=== PATIENT | female | born 1990 | race Caucasian/White ===

== ENCOUNTER → 2016-07-04 | Outpatient (CLI) | payer MEDICAID ==
[~2016-07-04] MED LIST: ALLE10TA PO; ANTA250T PO; AZIT500T2 PO; BREAST PUMP1 MI1; BUTA1CAP PO; BUTO1CRE PV; EPIN1INJ17 IM; EPIN1INJ24 IM; IBUP-232 PO; LEVOTAB PO; NALT1TAB3 PO; NORC5TAB PO; ONDA4TAB7 SL; PREN1CAP PO; PROM12.54 PO; PROM25TA5 PO; RANI150T PO; SENN1TAB PO; SERT-132 PO; TERC0.8C VAGINAL; VITA20004 PO; ZOFR4TAB PO; ZOLO25TA PO
== END ==
LOC: HPND 09:43
PROVIDERS: ATTEND Obstetrics & Gynecology Obstetrics
DX: O35.1XX0 Maternal care for (suspected) chromosomal abnormality in fetus, not applicable or unspecified (principal)
CPT/HCPCS: 76816

== ENCOUNTER → 2016-07-22 | Outpatient (CLI) | payer MEDICAID ==
[~2016-07-22] MED LIST changes: -TERC0.8C VAGINAL
== END ==
LOC: HPND 09:53
PROVIDERS: ATTEND Obstetrics & Gynecology
DX: O35.1XX0 Maternal care for (suspected) chromosomal abnormality in fetus, not applicable or unspecified (principal); O36.5930 Maternal care for other known or suspected poor fetal growth, third trimester, not applicable or unspecified
CPT/HCPCS: 76816

== ENCOUNTER 2016-07-30 23:02 | Inpatient (IN) | payer MEDICAID ==
[~2016-07-30] VITALS: Ht 170.2 cm; Wt 78.5 kg
[~2016-07-30 23:02] MED LIST changes: -ALLE10TA PO; -ANTA250T PO; -AZIT500T2 PO; -BREAST PUMP1 MI1; -BUTA1CAP PO; -BUTO1CRE PV; -EPIN1INJ17 IM; -EPIN1INJ24 IM; -IBUP-232 PO; -LEVOTAB PO; -NALT1TAB3 PO; -NORC5TAB PO; -ONDA4TAB7 SL; -PROM12.54 PO; -SENN1TAB PO; -SERT-132 PO; -VITA20004 PO; -ZOFR4TAB PO; -ZOLO25TA PO
[2016-07-30] MEDS ORDERED: LACTATED RINGER'S 1000 ML INJ 1,000 ML IV PRN (23:32)
[2016-07-30] MEDS: LACTATED RINGER'S 1000 ML INJ 1,000 ML IV SCH (23:32)
--- NOTE | 2016-07-30 23:32 | HHI.HP ---
HPI Travel History International Travel<30 Days: No Contact w/Intl Traveler<30Days: No Known Affected Area: No History of Present Illness HPI This patient is a 25-year-old 1 para 0 EDC is August 02, 2016 presently at 39 weeks and 4 days she presents with a chief complaint of spontaneous rupture of membranes at around 9 PM ruptured now for 2-1/2 hours Onset of irregular contractions just feeling crampy care with care for women course is significant for the baby with bilateral clubfeet and bilateral pyelectasis Group B strep is negative blood type is O+ one-hour GTT is 101 Baseline blood pressure 112/60 History Past Medical History Narrative Medical Patient is allergic to clindamycin Peanuts and penicillin Patient has a history of anxiety History of self cutting as a teenager Obstetric History Obstetric History First Past Surgical History Surgical History: No Previous Surgery Family History Family History: Negative Social History Alcohol Use: No Tobacco Use: No Substance Abuse: No Allergies-Medications (Allergen,Severity, Reaction): Coded Allergies: Clindamycin (Verified Allergy, Severe, swelling burnuing, 07/18/16) PEANUTS (Verified Allergy, Severe, ANAPHALACTIC SHOCK, 07/18/16) Penicillin (Verified Allergy, Unknown, DOESN'T REMEMBER MAKES SICK, 07/18) Home Meds Active Scripts Ranitidine 150 Mg Dll549 Mg PO BID #60 TAB Ref 4 Prov:Estrella Rendon 07/18/16 Promethazine (Phenergan)25 Mg Tab25 Mg PO ONCE #20 TAB Ref 1 Prov:Estrella Rendon 06/22/16 Reported Medications Vit W/ Fe Polysacch C (Vitafol Ultra 29-0.6-0.4-200 mg)1 Cap Cap Po 04/27/16 Discontinued Scripts Butoconazole Nitrate (One Dose (Gynazole-1)2 % Cre1 Appl PV HS #1 APPLIC Ref 0 Prov:Estrella Rendon 07/21/16 Review of Systems General / Constitutional: No: Fever, Weight Gain, Weight Loss, Chills, Other Eyes: No: Diploplia, Blurred Vision, Visual changes, Pain, Photophobia, Other HENT: No: Headaches, Vertigo, Dental Difficulties, Lightheadedness, Other Cardiovascular: No: Irregular Rhythm, Chest Pain or Discomfort, Palpitations, Tachycardia, Syncope, Varicosities, Edema, Cyanosis, Other Respiratory: No: Cough, Short of Breath, Wheezing, Other Gastrointestinal: Abdominal Pain, Other (rupture of membranes) Genitourinary: No: Urgency, Frequency, Dysuria, Nocturia, Hematuria, Decreased Urinary Output, Oliguria, Hesitancy, Dribbling, Incontinence, Pelvic Pain, Dyspareunia, Discharge, Menorrhagia, Vaginal Bleeding, Other Musculoskeletal: No: Limited ROM, Weakness, Cramping, Edema, Pain, Other Physical Exam Narrative GENERAL: Well-nourished, well-developed patient. Alert oriented 3 and cooperative in no acute distress SKIN: Warm and dry. HEAD: Normocephalic and atraumatic. EYES: No scleral icterus. No injection or drainage. Conjunctiva are pink ENT: No nasal drainage noted. Mucous membranes pink. Airway patent. NECK: Supple, trachea midline. No JVD. CARDIOVASCULAR: Regular rate and rhythm without murmurs, gallops, or rubs. RESPIRATORY: Breath sounds equal bilaterally. No accessory muscle use. ABDOMEN/GI: Gravid estimated weight of 7 pounds Gravid to [-] weeks size term Fundal Height: [-] GENITOURINARY: External Genitalia: intact and normal in appearance BUS glands: [-] Cervix: [-] Slightly posterior Dilatation: [-] Closed Effacement: [-] 80% effaced Station: [-] -2 station Presentation: [-] Vertex Membranes: [ ruptured]amnisure is positive Uterine Contractions: [-] Every 7 minutes FHT's: Category: [-] 1 Baseline: [-] 140 Reactive: [-] + Variability: [-] Moderate [id number] variability Decels: [-] 0 EXTREMITIES: No cyanosis or edema. 2+ reflexes nonbrisk NEUROLOGICAL: Awake and alert. Motor and sensory grossly within normal limits. Five out of 5 muscle strength in all muscle groups. Normal speech. 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
[2016-07-30] MEDS ORDERED: LIDOCAINE HCL 1% 50 ML VIAL I-DERMAL PRN (23:45)
[2016-07-30] MEDS ORDERED: ONDANSETRON HCL 4 MG/2 ML VIAL IV PRN (23:45)
[2016-07-30] MEDS ORDERED: CITRIC ACID-SODIUM CITRATE LIQ 30 ML UDC PO SCH (23:45)
[2016-07-30] MEDS ORDERED: SODIUM CHLORID 0.9% 500 ML INJ 500 ML IV PRN (23:45)
[2016-07-30] MEDS ORDERED: LIDOCAINE HCL 1% 50 ML VIAL INFIL PRN (23:45)
[2016-07-30] MEDS ORDERED: OXYTOCIN 30 UNITS-500ML PREMIX 500 ML IV ONE (23:45)
[2016-07-30] MEDS ORDERED: MINERAL OIL 10 ML VIAL TOPICAL PRN (23:45)
[2016-07-30] MEDS ORDERED: SODIUM CHLOR 0.9% 1000 ML INJ 1,000 ML IV PRN (23:52)
[2016-07-30 23:54] VITALS: BP 129/73; PULSE 85; RESP 18
[2016-07-30 23:55] LABS: AUTOMATED NEUTROPHIL # 8.8 TH/MM3 (1.8-7.7); BASOPHIL # 0.1 TH/MM3 (0-0.2); BASOPHIL % 0.7 % (0.0-2.0); EOSINOPHIL % 0.3 % (0.0-4.0); HEMATOCRIT 34.4 % (35.0-46.0); HEMO FLAGS DIFF FINAL; LYMPH % 22.1 % (9.0-44.0); LYMPHOCYTE # 2.9 TH/MM3 (1.0-4.8); MEAN CELL VOLUME 90.9 FL (80.0-100.0); MEAN CORPUSCULAR HEMOGLOBIN 31.6 PG (27.0-34.0); MEAN CORPUSCULAR HGB CONC 34.8 % (32.0-36.0); MONO % 8.4 % (0.0-8.0); NEUT % 68.5 % (16.0-70.0); PLATELET COUNT 243 TH/MM3 (150-450); RED BLOOD COUNT 3.78 MIL/MM3 (4.00-5.30); RED CELL DISTRIBUTION WIDTH 12.5 % (11.6-17.2); WHITE BLOOD COUNT 12.9 TH/MM3 (4.0-11.0)
[2016-07-31] VITALS (69 sets, daily range): BP systolic 80–136; BP diastolic 57–90; PULSE 54–93; RESP 16–20; TEMP 97.8–98.3
[2016-07-31 00:23] LABS: AMPHETAMINE, URINE NEG (NEG); BARBITURATES, URINE NEG (NEG); COCAINE, URINE NEG (NEG)
[2016-07-31 00:42] LABS: ALT (GPT) 13 U/L (10-53); ANION GAP 11 MEQ/L (5-15); AST (GOT) 17 U/L (15-37); BICARBONATE 19.9 MEQ/L (21.0-32.0); BLOOD UREA NITROGEN 8 MG/DL (7-18); CHLORIDE 109 MEQ/L (98-107); GLOMERULAR FILTRATION RATE 135 ML/MIN (>89); POTASSIUM 3.7 MEQ/L (3.5-5.1); SODIUM (NA) 140 MEQ/L (136-145); URIC ACID 4.8 MG/DL (2.6-6.0)
[2016-07-31 00:44] LABS: ALKALINE PHOSPHATASE 161 U/L (45-117); TOTAL BILIRUBIN ADULT 0.2 MG/DL (0.2-1.0)
[2016-07-31 01:15] LABS: BLOOD, URINE NEG (NEG); COMMENT (UR) CULT NOT INDICATED; CULTURE IF INDICATED CULT NOT INDICATED; GLUCOSE,URINE NEG (NEG); KETONE, URINE NEG (NEG); MUCUS URINE FEW /lpf (OCC); NITRITE,URINE NEG (NEG); SQUAMOUS EPITHELIAL CELL URINE 1 /hpf (0-5); URINE COLOR LIGHT-YELLOW (YELLW/STRAW)
[2016-07-31] MEDS ORDERED: OXYTOCIN 30 UNITS-500ML PREMIX 500 ML IV SCH (06:00)
--- NOTE | 2016-07-31 06:09 | PD.LABORPN ---
Subjective Subjective Patient states she is still feeling contractions however they're not recording well on the monitor Objective Vital Signs Vital Signs Date Time Temp Pulse Resp B/P Pulse Ox O2 Delivery O2 Flow Rate FiO2 07/31/16 04:45 16 07/31/16 04:06 18 07/31/16 03:45 18 07/31/16 02:44 58 126/70 07/31/16 02:43 97.8 18 07/31/16 02:00 18 07/31/16 01:30 18 07/31/16 01:00 18 07/31/16 00:29 18 07/30/16 23:54 85 129/73 07/30/16 23:54 18 07/30/16 23:54 85 129/73 Objective Pelvic Exam: Cervix: [-] Posterior Dilatation: [-] Fingertip Effacement: [-] 90% Station: [-] -1 station Presentation: [-] Vertex Membranes: ruptured] Uterine Contractions: [-] Irregular FHT's: Category: [-] 1 Baseline: [-]140 Reactive: [-] + Variability: [-] Moderate Decels: [-] 0 Assessment/Plan Assessment and Plan Assessment; premature rupture of membranes Slightly more effaced however no progress Plan; Pitocin augmentation Zofran for nausea IV medication if patient desires something for pain Anjana Lynn MD Jul 31, 2016 06:09
[2016-07-31] MEDS: LACTATED RINGER'S 1000 ML INJ 1,000 ML IV SCH ×2 (06:28→13:59)
[2016-07-31] MEDS: MORPHINE SULFATE 4 MG/ML INJ IV PRN ×2 (12:56→22:00)
[2016-07-31] MEDS ORDERED: fentaNYL 2MCG-BUPIV 0.125% INJ 100 ML ONE (14:36)
[2016-07-31] MEDS ORDERED: ePHEDrine/NS 25 MG/5 ML SYR ONE (14:37)
--- NOTE | 2016-07-31 14:52 | PD.LABORPN ---
Subjective Subjective Patient reports increasing pain with contractions; denies other complaints. Objective Vital Signs Vital Signs Date Time Temp Pulse Resp B/P Pulse Ox O2 Delivery O2 Flow Rate FiO2 07/31/16 14:01 75 129/88 07/31/16 13:31 61 126/69 07/31/16 13:00 97.8 07/31/16 13:00 75 126/73 07/31/16 12:00 74 136/73 07/31/16 12:00 97.8 07/31/16 11:30 69 116/73 07/31/16 10:31 61 110/65 07/31/16 10:00 98.0 07/31/16 10:00 70 130/87 07/31/16 09:30 59 124/78 07/31/16 09:00 75 123/78 07/31/16 08:00 97.8 07/31/16 08:00 66 121/78 07/31/16 08:00 20 07/31/16 07:55 69 126/82 07/31/16 07:09 77 112/68 Objective Pelvic Exam (Per Nursing staff): Cervix: Dilatation: 4cm Effacement: 90% Station: -1 Presentation: V Membranes: Ruptured (2100 07/30) Uterine Contractions: q3 min FHT's: Category: 1 Baseline: 120 Reactive: Y Variability: Mod Decels: Absent Assessment/Plan Problem List: (1) Labor and delivery indication for care or intervention (2) Assessment and Plan 25 yo G1 at 39 5/7 weeks -Category 1 rhythm -Making cervical change on Pitocin 30: Dilation 1cm -> 4cm over last ~1-2 hrs -IUPC placed -Patient with increased pain with contractions; epidural will be placed since dilation of 4cm Manuel Gonsalez MD R2 Jul 31, 2016 14:52
[2016-07-31] MEDS ORDERED: fentaNYL 2MCG-BUPIV 0.125% INJ 100 ML EPIDURAL SCH (16:00)
[2016-07-31] MEDS ORDERED: MEASLES, MUMPS, RUBELLA VACCINE 0.5 ML VIAL SQ ONE (16:00)
[2016-07-31] MEDS ORDERED: NO SYSTEM NARCOTICS XX PRN (16:00)
[2016-07-31] MEDS ORDERED: DO NOT ADMINISTER ANTICOAGULANTS XX PRN (16:00)
[2016-07-31] MEDS ORDERED: ePHEDrine/NS 50 MG/5 ML SYR IV PRN (16:00)
[2016-07-31] MEDS ORDERED: DIPHTH/TETANUS/ACEL PERTUSSIS (BOOSTER) 0.5 ML VIAL/PFS IM ONE (16:00)
--- NOTE | 2016-07-31 19:35 | PD.OB.DELI ---
Anesthesia: Epidural Episiotomy: None Vaginal Delivery: Normal Presentation: Occiput anterior Nuchal Cord: None Delayed cord clamping (45 sec): Yes Infant: Male One Minute : 8 Five Minute : 9 Weight: 2920 Care: Suctioned, Responded to stimulation Placenta: Spontaneous delivery, Intact, 3 vessel cord Laceration: 1 deg Repair: Chromic interrupted Additional Information 25 year old now delivered at 39 weeks gestation via uncomplicated spontaneous vaginal delivery. Placenta was delivered spontaneously, intact with 3-vessel cord. Apgars were 8/9. weight 2920g. Mother had a first degree vaginal laceration repaired with 2.0 chromic sutures. Pipe Nixon MD R1 Jul 31, 2016 19:35
--- NOTE | 2016-07-31 19:40 | PD.LABORPN ---
Subjective Subjective The OB attending supervising note This patient is a at 39 weeks who was delivered spontaneously over a first -degree perineal laceration, bulb suctioned on the perineum baby then delivered without difficulty by family service worker, baby is a male weight 2920 g, 8/ 9 Apgars. There were no complications to delivery, cord blood obtained placenta delivered spontaneously intact. First-degree perineal lacerations were oversewn with 2 [id number] sutures of 2-0 chromic, hemostasis achieved , blood loss 100 cc, mother and baby doing well liver supervised by myself family medicine performing the procedure well Objective Vital Signs Vital Signs Date Time Temp Pulse Resp B/P Pulse Ox O2 Delivery O2 Flow Rate FiO2 07/31/16 18:16 67 126/69 07/31/16 18:00 74 117/90 07/31/16 17:45 65 124/82 07/31/16 17:31 66 118/64 07/31/16 17:15 62 122/69 07/31/16 17:01 64 116/64 07/31/16 17:00 17 07/31/16 17:00 98.3 07/31/16 16:46 74 126/64 07/31/16 16:31 74 129/75 07/31/16 16:15 64 119/66 07/31/16 16:12 72 106/75 07/31/16 16:11 86 80/58 07/31/16 16:06 69 125/76 07/31/16 16:05 73 07/31/16 16:01 69 114/61 07/31/16 16:00 70 07/31/16 15:56 73 115/58 07/31/16 15:55 59 07/31/16 15:50 75 119/70 07/31/16 15:46 58 120/57 07/31/16 15:45 68 07/31/16 15:40 75 113/68 07/31/16 15:36 78 115/60 07/31/16 15:35 73 07/31/16 15:31 83 120/75 07/31/16 15:30 78 07/31/16 15:25 63 07/31/16 15:25 122/63 07/31/16 15:21 76 127/68 07/31/16 15:20 74 07/31/16 15:17 93 116/84 07/31/16 15:15 85 07/31/16 15:10 76 07/31/16 15:05 78 07/31/16 15:00 87 07/31/16 14:55 64 07/31/16 14:50 54 07/31/16 14:45 62 07/31/16 14:30 70 135/79 07/31/16 14:01 75 129/88 07/31/16 14:00 98.2 07/31/16 13:31 61 126/69 07/31/16 13:00 97.8 07/31/16 13:00 75 126/73 07/31/16 12:00 74 136/73 07/31/16 12:00 97.8 Objective Assessment/Plan Problem List: (1) Labor and delivery indication for care or intervention (2) Rik Arciniega II, MD Jul 31, 2016 19:40
[2016-07-31] MEDS ORDERED: ACETAMINOPHEN 325 MG TAB PO PRN (19:45)
[2016-07-31] MEDS ORDERED: ALUMINUM/MAGNESIUM/SIMETH 30 ML CUP PO PRN (19:45)
[2016-07-31] MEDS ORDERED: SODIUM CHLORIDE 0.9% FLUSH 5 ML FLUSH IV PRN (19:45)
[2016-07-31] MEDS ORDERED: BENZOCAINE 20% TOPICAL SPRAY 60 ML CAN TOPICAL PRN (19:45)
[2016-07-31] MEDS ORDERED: ZOLPIDEM TARTRATE 5 MG TAB PO PRN (19:45)
[2016-07-31] MEDS: IBUPROFEN 600 MG TAB PO PRN (20:30)
[2016-07-31] MEDS ORDERED: SODIUM CHLORIDE 0.9% FLUSH 5 ML FLUSH IV SCH (21:00)
[2016-07-31] MEDS: WITCH HAZEL 50%/GLYCERIN 12.5% 40 PAD JAR TOPICAL PRN (22:33)
[2016-07-31] MEDS: ONDANSETRON ODT 4 MG TAB PO PRN (23:43)
[2016-08-01] MEDS: IBUPROFEN 600 MG TAB PO PRN ×4 (02:26→21:37)
[2016-08-01] MEDS ORDERED: oxyCODONE/ACETAMINOPHEN 5 MG/325 MG TAB PO PRN ×2 (07:30)
--- NOTE | 2016-08-01 07:31 | HHI.OB ---
Subjective Post Day: 1 Remarks Patient is doing well this morning. Complaining of abdominal cramps. No vaginal bleeding improved from yesterday and less than a normal menstrual cycle. She is an bleeding and voiding without difficulty. Attempting to breast -feed. She is following with care for women. No chest pain or shortness of breath. Objective Vitals/I&O Vital Signs Date Time Temp Pulse Resp B/P Pulse Ox O2 Delivery O2 Flow Rate FiO2 07/31/16 19:50 18 07/31/16 19:45 83 123/80 07/31/16 19:45 83 123/80 07/31/16 19:31 77 124/76 07/31/16 19:20 18 07/31/16 19:16 80 133/65 07/31/16 18:30 71 128/69 07/31/16 18:16 67 126/69 07/31/16 18:00 74 117/90 07/31/16 17:45 65 124/82 07/31/16 17:31 66 118/64 07/31/16 17:15 62 122/69 07/31/16 17:01 64 116/64 07/31/16 17:00 17 07/31/16 17:00 98.3 07/31/16 16:46 74 126/64 07/31/16 16:31 74 129/75 07/31/16 16:15 64 119/66 07/31/16 16:12 72 106/75 07/31/16 16:11 86 80/58 07/31/16 16:06 69 125/76 07/31/16 16:05 73 07/31/16 16:01 69 114/61 07/31/16 16:00 70 07/31/16 15:56 73 115/58 07/31/16 15:55 59 07/31/16 15:50 75 119/70 07/31/16 15:46 58 120/57 07/31/16 15:45 68 07/31/16 15:40 75 113/68 07/31/16 15:36 78 115/60 07/31/16 15:35 73 07/31/16 15:31 83 120/75 07/31/16 15:30 78 07/31/16 15:25 63 07/31/16 15:25 122/63 07/31/16 15:21 76 127/68 07/31/16 15:20 74 07/31/16 15:17 93 116/84 07/31/16 15:15 85 07/31/16 15:10 76 07/31/16 15:05 78 07/31/16 15:00 87 07/31/16 14:55 64 07/31/16 14:50 54 07/31/16 14:45 62 07/31/16 14:30 70 135/79 07/31/16 14:01 75 129/88 07/31/16 14:00 98.2 07/31/16 13:31 61 126/69 07/31/16 13:00 97.8 07/31/16 13:00 75 126/73 07/31/16 12:00 74 136/73 07/31/16 12:00 97.8 07/31/16 11:30 69 116/73 07/31/16 10:31 61 110/65 07/31/16 10:00 98.0 07/31/16 10:00 70 130/87 07/31/16 09:30 59 124/78 07/31/16 09:00 75 123/78 07/31/16 08:00 97.8 07/31/16 08:00 66 121/78 07/31/16 08:00 20 07/31/16 07:55 69 126/82 Objective Remarks GENERAL: Well-nourished, well-developed patient. CARDIOVASCULAR: Regular rate and rhythm without murmurs, gallops, or rubs. RESPIRATORY: Breath sounds equal bilaterally. No accessory muscle use. ABDOMEN/GI: Abdomen soft, non-tender. Fundus: Firm, non-tender at umbilicus. GENITOURINARY: Light to moderate bleeding. EXTREMITIES: No cyanosis or edema, non-tender, without signs of DVT. Medications and IVs Current Medications Medications (Trade) Dose Ordered Sig/Aj Route Start Time Stop Time Status Last Admin (Pitocin 30 Units-NS 500 ml Premix) 500 ml @ 0 mls/hr TITRATE IV 07/31/16 06:00 07/31/16 06:27 Miscellaneous Information No systemic narcotics to be given except... UNSCH PRN XX 07/31/16 16:00 08/01/16 15:59 Miscellaneous Information DO NOT ADMINISTER ANY ANTICOAGUL... UNSCH PRN XX 07/31/16 16:00 08/01/16 15:59 (fentaNYL 2MCG-BUPIV 0.125% INJ) 100 ml @ 0 mls/hr TITRATE EPIDURAL 07/31/16 16:00 (ePHEDrine/NS 50 MG/5 ML SYR) 10 mg UNSCH PRN IV 07/31/16 16:00 08/01/16 15:59 (NS Flush) 2 ml BID IV 07/31/16 21:00 (NS Flush) 2 ml UNSCH PRN IV 07/31/16 19:45 (Tylenol) 650 mg Q4H PRN PO 07/31/16 19:45 (Motrin) 600 mg Q6H PRN PO 07/31/16 19:45 08/01/16 02:26 (Americaine 20% Top Spr) 1 spray Q4H PRN TOPICAL 07/31/16 19:45 07/31/16 22:33 (Tucks Pads) 1 applic QID PRN TOPICAL 07/31/16 19:45 07/31/16 22:33 (Ashley-Colace) 2 tab Q12H PRN PO 07/31/16 19:45 (Ambien) 5 mg HS PRN PO 07/31/16 19:45 (Mag-Al Plus Susp Liq) 15 ml Q8H PRN PO 07/31/16 19:45 (Zofran Odt) 4 mg Q6H PRN PO 07/31/16 19:45 07/31/16 23:43 (Percocet 5-325 Mg) 1 tab Q4H PRN PO 08/01/16 07:30 (Percocet 5-325 Mg) 2 tab Q4H PRN PO 08/01/16 07:30 Assessment/Plan Problem List: (1) Vaginal delivery Assessment and Plan 25 year old PPD1 1. Care - AFVSS since delivery - Motrin and Percocet prn pain - Encouraged OOB, as tolerated - Pelvic rest x 6 weeks - Will f/u with care for women in 4-6 weeks - Anticipate d/c tomorrow Discussed with Dr. Arciniega Discharge Planning Likely tomorrow Bobby Ramírez MD R2 Aug 01, 2016 07:31
--- NOTE | 2016-08-01 08:09 | HHI.OB ---
Subjective Post Day: 1 Remarks Patient's day 1 and doing well no complaints or problems bleeding is decreased uterus is firm and she is tolerating her diet and ambulating well, she is seen with the family medicine residents and agree with their evaluation and plan Objective Vitals/I&O Vital Signs Date Time Temp Pulse Resp B/P Pulse Ox O2 Delivery O2 Flow Rate FiO2 07/31/16 19:50 18 07/31/16 19:45 83 123/80 07/31/16 19:45 83 123/80 07/31/16 19:31 77 124/76 07/31/16 19:20 18 07/31/16 19:16 80 133/65 07/31/16 18:30 71 128/69 07/31/16 18:16 67 126/69 07/31/16 18:00 74 117/90 07/31/16 17:45 65 124/82 07/31/16 17:31 66 118/64 07/31/16 17:15 62 122/69 07/31/16 17:01 64 116/64 07/31/16 17:00 17 07/31/16 17:00 98.3 07/31/16 16:46 74 126/64 07/31/16 16:31 74 129/75 07/31/16 16:15 64 119/66 07/31/16 16:12 72 106/75 07/31/16 16:11 86 80/58 07/31/16 16:06 69 125/76 07/31/16 16:05 73 07/31/16 16:01 69 114/61 07/31/16 16:00 70 07/31/16 15:56 73 115/58 07/31/16 15:55 59 07/31/16 15:50 75 119/70 07/31/16 15:46 58 120/57 07/31/16 15:45 68 07/31/16 15:40 75 113/68 07/31/16 15:36 78 115/60 07/31/16 15:35 73 07/31/16 15:31 83 120/75 07/31/16 15:30 78 07/31/16 15:25 63 07/31/16 15:25 122/63 07/31/16 15:21 76 127/68 07/31/16 15:20 74 07/31/16 15:17 93 116/84 07/31/16 15:15 85 07/31/16 15:10 76 07/31/16 15:05 78 07/31/16 15:00 87 07/31/16 14:55 64 07/31/16 14:50 54 07/31/16 14:45 62 07/31/16 14:30 70 135/79 07/31/16 14:01 75 129/88 07/31/16 14:00 98.2 07/31/16 13:31 61 126/69 07/31/16 13:00 97.8 07/31/16 13:00 75 126/73 07/31/16 12:00 74 136/73 07/31/16 12:00 97.8 07/31/16 11:30 69 116/73 07/31/16 10:31 61 110/65 07/31/16 10:00 98.0 07/31/16 10:00 70 130/87 07/31/16 09:30 59 124/78 07/31/16 09:00 75 123/78 Objective Remarks GENERAL: Well-nourished, well-developed patient. CARDIOVASCULAR: Regular rate and rhythm without murmurs, gallops, or rubs. RESPIRATORY: Breath sounds equal bilaterally. No accessory muscle use. ABDOMEN/GI: Abdomen soft, non-tender. Fundus: Firm, non-tender at umbilicus. GENITOURINARY: Light to moderate bleeding. EXTREMITIES: No cyanosis or edema, non-tender, without signs of DVT. Medications and IVs Current Medications Medications (Trade) Dose Ordered Sig/Aj Route Start Time Stop Time Status Last Admin (Pitocin 30 Units-NS 500 ml Premix) 500 ml @ 0 mls/hr TITRATE IV 07/31/16 06:00 07/31/16 06:27 Miscellaneous Information No systemic narcotics to be given except... UNSCH PRN XX 07/31/16 16:00 08/01/16 15:59 Miscellaneous Information DO NOT ADMINISTER ANY ANTICOAGUL... UNSCH PRN XX 07/31/16 16:00 08/01/16 15:59 (fentaNYL 2MCG-BUPIV 0.125% INJ) 100 ml @ 0 mls/hr TITRATE EPIDURAL 07/31/16 16:00 (ePHEDrine/NS 50 MG/5 ML SYR) 10 mg UNSCH PRN IV 07/31/16 16:00 08/01/16 15:59 (NS Flush) 2 ml BID IV 07/31/16 21:00 (NS Flush) 2 ml UNSCH PRN IV 07/31/16 19:45 (Tylenol) 650 mg Q4H PRN PO 07/31/16 19:45 (Motrin) 600 mg Q6H PRN PO 07/31/16 19:45 08/01/16 02:26 (Americaine 20% Top Spr) 1 spray Q4H PRN TOPICAL 07/31/16 19:45 07/31/16 22:33 (Tucks Pads) 1 applic QID PRN TOPICAL 07/31/16 19:45 07/31/16 22:33 (Ashley-Colace) 2 tab Q12H PRN PO 07/31/16 19:45 (Ambien) 5 mg HS PRN PO 07/31/16 19:45 (Mag-Al Plus Susp Liq) 15 ml Q8H PRN PO 07/31/16 19:45 (Zofran Odt) 4 mg Q6H PRN PO 07/31/16 19:45 07/31/16 23:43 (Percocet 5-325 Mg) 1 tab Q4H PRN PO 08/01/16 07:30 (Percocet 5-325 Mg) 2 tab Q4H PRN PO 08/01/16 07:30 Assessment/Plan Problem List: (1) Vaginal delivery Assessment and Plan 25 year old PPD1 1. Care - AFVSS since delivery - Motrin and Percocet prn pain - Encouraged OOB, as tolerated - Pelvic rest x 6 weeks - Will f/u with care for women in 4-6 weeks - Anticipate d/c tomorrow Discussed with Dr. Arciniega Discharge Planning Likely tomorrow Rik Arciniega II, MD Aug 01, 2016 08:09
[2016-08-01] MEDS: DOCUSATE SODIUM 50 MG/SENNA 8.6 MG TAB PO PRN (15:59)
[2016-08-01] MEDS: ONDANSETRON ODT 4 MG TAB PO PRN (17:52)
[2016-08-01] MEDS: ACETAMINOPHEN/HYDROcodone 325 MG/5 MG TAB PO PRN (21:37)
[2016-08-02] MEDS: ACETAMINOPHEN/HYDROcodone 325 MG/5 MG TAB PO PRN ×4 (02:39→18:08)
[2016-08-02] MEDS: DOCUSATE SODIUM 50 MG/SENNA 8.6 MG TAB PO PRN (04:35)
[2016-08-02] MEDS: IBUPROFEN 600 MG TAB PO PRN ×3 (04:35→18:08)
--- NOTE | 2016-08-02 08:09 | HHI.OB ---
Subjective Post Day: 2 Remarks Patient is doing well this morning. Pain is controlled with medications. She is a bleeding and voiding without difficulty. Vaginal bleeding has decreased from yesterday. No fever, chills, shortness of breath, chest pain. She is breast-feeding. (Bobby Ramírez MD R2) Objective Objective Remarks GENERAL: Well-nourished, well-developed patient. CARDIOVASCULAR: Regular rate and rhythm without murmurs, gallops, or rubs. RESPIRATORY: Breath sounds equal bilaterally. No accessory muscle use. ABDOMEN/GI: Abdomen soft, non-tender. Fundus: Firm, non-tender at umbilicus. GENITOURINARY: Light to moderate bleeding. EXTREMITIES: No cyanosis or edema, non-tender, without signs of DVT. Medications and IVs Current Medications Medications (Trade) Dose Ordered Sig/Aj Route Start Time Stop Time Status Last Admin Oxytocin 500 ml @ 0 mls/hr TITRATE IV 07/31/16 06:00 07/31/16 06:27 (fentaNYL 2MCG-BUPIV 0.125% INJ) 100 ml @ 0 mls/hr TITRATE EPIDURAL 07/31/16 16:00 (NS Flush) 2 ml BID IV 07/31/16 21:00 (NS Flush) 2 ml UNSCH PRN IV 07/31/16 19:45 (Tylenol) 650 mg Q4H PRN PO 07/31/16 19:45 (Motrin) 600 mg Q6H PRN PO 07/31/16 19:45 08/02/16 04:35 (Americaine 20% Top Spr) 1 spray Q4H PRN TOPICAL 07/31/16 19:45 07/31/16 22:33 (Tucks Pads) 1 applic QID PRN TOPICAL 07/31/16 19:45 07/31/16 22:33 (Ashley-Colace) 2 tab Q12H PRN PO 07/31/16 19:45 08/02/16 04:35 (Ambien) 5 mg HS PRN PO 07/31/16 19:45 (Mag-Al Plus Susp Liq) 15 ml Q8H PRN PO 07/31/16 19:45 (Zofran Odt) 4 mg Q6H PRN PO 07/31/16 19:45 08/01/16 17:52 ([place] 5-325 Mg) 2 tab Q4H PRN PO 08/01/16 20:45 08/02/16 02:39 (Bobby Ramírez MD R2) Assessment/Plan Problem List: (1) Vaginal delivery Assessment and Plan 25 year old PPD2 1. Care - AFVSS since delivery - Motrin and lortab prn pain - Encouraged OOB, as tolerated - Pelvic rest x 6 weeks - Will f/u with care for women in 4-6 weeks - Anticipate d/c today in the evening as baby is staying until that time Discuss with OB hospitalist Discharge Planning today (Bobby Ramírez MD R2) Attestation I have discussed this patient with resident and agree with discharge plans ( Dulce Campbell MD) Bobby Ramírez MD R2 Aug 02, 2016 08:09 Dulce Campbell MD Aug 02, 2016 09:17
[2016-08-02] MEDS ORDERED: NORC5TAB PO (08:13)
[2016-08-02] MEDS ORDERED: IBUP-232 PO (08:13)
[2016-08-02] MEDS ORDERED: SENN1TAB PO (08:13)
--- NOTE | 2016-08-02 08:13 | HHI.DCPOC ---
Discharge Care Plan Diagnosis: (1) Vaginal delivery Report Symptoms to Your Doctor -Temperate above 100.5 degrees -Redness, of incision or excessive or foul smelling drainage -Unusual pain or calf pain -Increased vaginal bleeding -Painful or difficulty urinating -Feelings of extreme sadness or anxiety after 2 weeks Goals to Promote Your Health * To prevent worsening of your condition and complications * To maintain your health at the optimal level Directions to Meet Your Goals Take your medications as prescribed Follow your dietary instruction Follow activity as directed Ensure plenty of rest for recovery Drink fluids for hydration Keep your appointments as scheduled Take your immunizations and boosters as scheduled If your symptoms worsen call your PCP, if no PCP go to Urgent Care Center or Emergency Room Smoking is Dangerous to Your Health. Avoid second hand smoke Call the 24-hour crisis hotline for domestic abuse at Bobby Ramírez MD R2 Aug 02, 2016 08:13
[2016-08-02 08:30] VITALS: BP 116/71; PULSE 67; RESP 18; TEMP 98.7
[2016-08-02] MEDS ORDERED: BREAST PUMP1 MI1 (12:54)
[2016-08-02] MEDS: WITCH HAZEL 50%/GLYCERIN 12.5% 40 PAD JAR TOPICAL PRN (13:45)
[2016-08-04 08:00] LABS: BATH SALTS (MDPV) UR NEG (NEG); ECSTASY (MDMA) UR NEG (NEG); HEROIN (6-ACETYLMORPHINE) UR NEG (NEG); K2 SPICE UR NEG (NEG); OBMETHADONE UR NEG (NEG); OXYCODONE (PERCODAN) NEG (NEG); PHENCYCLIDINE URINE NEG (NEG)
[2016-08-10] MEDS ORDERED: ZOLO25TA PO (12:23)
[2016-08-10] MEDS ORDERED: SERT-132 PO (12:23)
[2016-10-03] MEDS ORDERED: PROM12.54 PO (11:04)
[2016-10-03] MEDS ORDERED: ZOFR4TAB PO (11:04)
[2016-10-27] MEDS ORDERED: EPIN1INJ24 IM (09:06)
[2016-10-27] MEDS ORDERED: VITA20004 PO (09:06)
[2016-10-31] MEDS ORDERED: EPIN1INJ17 IM (15:59)
[2016-11-10] MEDS ORDERED: ANTA250T PO (08:37)
[2016-11-10] MEDS ORDERED: NALT1TAB3 PO (08:37)
[2016-11-10] MEDS ORDERED: AZIT500T2 PO (08:42)
[2016-11-10] MEDS ORDERED: PROM12.54 PO (08:42)
[2016-11-10] MEDS ORDERED: LEVOTAB PO (08:42)
[2016-11-16] MEDS ORDERED: ALLE10TA PO (10:50)
[2016-11-17] MEDS ORDERED: PROM12.54 PO (11:03)
[2016-12-12] MEDS ORDERED: ONDA4TAB7 SL (09:50)
[2016-12-12] MEDS ORDERED: PROM12.54 PO (15:56)
== END 2016-08-02 19:58 | disposition home or self-care (01) | DRG 775 ==
LOC: HOBED 23:02 → H2EB 23:36 → H1EA 07-31 21:51
PROVIDERS: ADMIT Obstetrics & Gynecology; ATTEND Obstetrics & Gynecology
PROC: 0HQ9XZZ Repair Perineum Skin, External Approach (ICD-10-PCS; principal; 2016-07-30)
PROC: 10E0XZZ Delivery of Products of Conception, External Approach (ICD-10-PCS; 2016-07-30)
PROC: 3E0R3CZ (ICD-10-PCS; 2016-07-30)
PROC: 00HU33Z Insertion of Infusion Device into Spinal Canal, Percutaneous Approach (ICD-10-PCS; 2016-07-30)
DX: O70.0 First degree perineal laceration during delivery (principal); O42.92 Full-term premature rupture of membranes, unspecified as to length of time between rupture and onset of labor; Z37.0 Single live birth; Z3A.39 39 weeks gestation of pregnancy
CPT/HCPCS: 59025; 80053; 80307; 81001; 84112; 84550; 85025; 86900; 86901; 90715; 99285; G0481; J2270; J2405; J2590; J3010; J7040; J7120

== ENCOUNTER 2016-08-13 12:09 | Emergency (ER) | payer MEDICAID ==
[~2016-08-13] VITALS: Ht 170.2 cm; Wt 70.0 kg
[~2016-08-13 12:09] MED LIST changes: +BREAST PUMP1 MI1; +IBUP-232 PO; +NORC5TAB PO; -PROM25TA5 PO; -RANI150T PO; +SENN1TAB PO; +SERT-132 PO; +ZOLO25TA PO
[2016-08-13 12:10] VITALS: BP 160/73; PULSE 68; RESP 16; TEMP 97.7; O2SAT 97
[2016-08-13 12:32] VITALS: BP 129/68; PULSE 68; RESP 18; O2SAT 100
[2016-08-13] MEDS ORDERED: diphenhydrAMINE HCL 50 MG/ML VIAL IV PUSH ONE (12:45)
[2016-08-13] MEDS ORDERED: SODIUM CHLOR 0.9% 1000 ML INJ 1,000 ML IV ONE (12:45)
[2016-08-13] MEDS ORDERED: KETOROLAC TROMETHAMINE 30 MG/ML (IVP) VIAL IV PUSH ONE (12:45)
[2016-08-13] MEDS ORDERED: PROCHLORPERAZINE INJ 10 MG/2 ML VIAL IVS ONE (12:45)
[2016-08-13 13:15] LABS: BLOOD, URINE MOD (NEG); COMMENT (UR) CULT NOT INDICATED; CULTURE IF INDICATED CULT NOT INDICATED; GLUCOSE,URINE NEG (NEG); KETONE, URINE NEG (NEG); MUCUS URINE FEW /lpf (OCC); NITRITE,URINE NEG (NEG); URINE COLOR YELLOW (YELLW/STRAW)
[2016-08-13 13:17] LABS: AUTOMATED NEUTROPHIL # 5.9 TH/MM3 (1.8-7.7); BASOPHIL # 0.1 TH/MM3 (0-0.2); BASOPHIL % 0.8 % (0.0-2.0); EOSINOPHIL % 0.5 % (0.0-4.0); HEMATOCRIT 36.7 % (35.0-46.0); HEMO FLAGS DIFF FINAL; LYMPH % 21.2 % (9.0-44.0); LYMPHOCYTE # 1.7 TH/MM3 (1.0-4.8); MEAN CELL VOLUME 93.4 FL (80.0-100.0); MEAN CORPUSCULAR HGB CONC 34.2 % (32.0-36.0); NEUT % 72.5 % (16.0-70.0); PLATELET COUNT 317 TH/MM3 (150-450); RED BLOOD COUNT 3.93 MIL/MM3 (4.00-5.30); RED CELL DISTRIBUTION WIDTH 13.2 % (11.6-17.2); WHITE BLOOD COUNT 8.2 TH/MM3 (4.0-11.0)
[2016-08-13 13:35] LABS: ALT (GPT) 34 U/L (10-53); ANION GAP 10 MEQ/L (5-15); AST (GOT) 24 U/L (15-37); BICARBONATE 22.1 MEQ/L (21.0-32.0); BLOOD UREA NITROGEN 8 MG/DL (7-18); CHLORIDE 109 MEQ/L (98-107); GLOMERULAR FILTRATION RATE 99 ML/MIN (>89); SODIUM (NA) 141 MEQ/L (136-145)
[2016-08-13 13:37] LABS: ALKALINE PHOSPHATASE 124 U/L (45-117); TOTAL BILIRUBIN ADULT 0.6 MG/DL (0.2-1.0)
[2016-08-13] MEDS ORDERED: BUTA1CAP PO (15:11)
--- NOTE | 2016-08-13 15:11 | PD ---
HPI Chief Complaint: Headache Time Seen by Provider: 12:31 Travel History International Travel<30 days: No Contact w/Intl Traveler<30days: No Traveled to known affect area: No History of Present Illness HPI Patient is a 25 year old female who comes in complaining of a frontal headache for the past 4 days. She says the pain is mostly in the front of her head. She gave one week ago and had an epidural at the time. She says the headache started a few days after the epidural. She says she sleeps as much as she can, the baby is extra fussy because he is currently in leg casts for club feet. She denies fever or chills. She has been taking Ibuprofen for the pain without much relief. She says she was concerned because the pain became worse yesterday. She reports some dizziness. She denies nausea or vomiting. She denies blurred vision. PFSH Past Medical History ADHD: Yes Asthma: No Autoimmune Disease: Yes Blood Disorders: No Anxiety: Yes Depression: Yes Heart Rhythm Problems: No Cancer: No Cardiovascular Problems: No High Cholesterol: No Chemotherapy: No COPD: No Cerebrovascular Accident: No Diabetes: No Diminished Hearing: No Endocrine: No Gastrointestinal Disorders: Yes (N/V WITH ) GERD: No Genitourinary: No Headaches: Yes Hepatitis: No Hiatal Hernia: No Immune Disorder: No Implanted Vascular Access Dvce: No Musculoskeletal: Yes Neurologic: Yes Psychiatric: Yes Reproductive: No Respiratory: Yes (MONO DX;02/25) Immunizations Current: Yes Migraines: Yes Radiation Therapy: No Seizures: No Sleep Apnea: No Thyroid Disease: No Ulcer: No Influenza Vaccination: No ?: Not : 1 Para: 1 Past Surgical History Surgical History: No Previous Surgery Other Surgery: No Social History Alcohol Use: No Tobacco Use: No Substance Use: No Allergies-Medications (Allergen,Severity, Reaction): Coded Allergies: Clindamycin (Verified Allergy, Severe, swelling burnuing, 08/13/16) PEANUTS (Verified Allergy, Severe, ANAPHALACTIC SHOCK, 08/13/16) Penicillin (Verified Allergy, Unknown, DOESN'T REMEMBER MAKES SICK, 08/13) Reported Meds & Prescriptions Reported Meds & Active Scripts Active Breast Pump (Device) 1 Mis Mis 1 Ea .ROUTE DIRECTED [place] (Hydrocodone-Acetaminophen) 5-325 mg Tab 1 Tab PO Q6H PRN Ibuprofen 600 Mg Tab 600 Mg PO Q6H PRN Senna Plus 8.6-50 mg (Sennosides-Docusate Sodium) 1 Tab Tab 2 Tab PO Q12H PRN Reported Vitafol Ultra 29-0.6-0.4-200 mg ( Vit W/ Fe Polysacch C) 1 Cap Cap PO Review of Systems Except as stated in HPI: all other systems reviewed are Neg General / Constitutional: No: Fever, Chills Eyes: No: Blurred Vision HENT: Positive: Headaches Cardiovascular: No: Chest Pain or Discomfort Respiratory: No: Shortness of Breath Gastrointestinal: No: Nausea, Vomiting Musculoskeletal: No: Edema, Pain Skin: No Rash, No Change in Pigmentation Neurologic: Positive: Dizziness Physical Exam Narrative GENERAL: Awake and alert, in no acute distress. SKIN: Warm and dry. HEAD: Atraumatic. Normocephalic. EYES: Pupils equal and round. No scleral icterus. Extraocular movements intact. ENT: Mucous membranes pink and moist. NECK: Trachea midline. No JVD. CARDIOVASCULAR: Regular rate and rhythm. No murmur appreciated. RESPIRATORY: No accessory muscle use. Clear to auscultation. Breath sounds equal bilaterally. GASTROINTESTINAL: Abdomen soft, non-tender, nondistended. MUSCULOSKELETAL: No obvious deformities. No clubbing. No cyanosis. No edema. NEUROLOGICAL: Awake and alert. No obvious cranial nerve deficits. Motor grossly within normal limits. Normal speech. PSYCHIATRIC: Appropriate mood and affect; insight and judgment normal. Data Data Last Documented VS Vital Signs Date Time Temp Pulse Resp B/P Pulse Ox O2 Delivery O2 Flow Rate FiO2 08/13/16 14:47 18 08/13/16 12:32 68 129/68 100 Room Air 08/13/16 12:10 97.7 Orders Complete Blood Count With Diff (08/13/16 12:42) Comprehensive Metabolic Panel (08/13/16 12:42) Urinalysis - C+S If Indicated (08/13/16 12:42) Sodium Chlor 0.9% 1000 Ml Inj (Ns 1000 M (08/13/16 12:45) Ketorolac Inj (Toradol Inj) (08/13/16 12:45) Prochlorperazine Inj (Compazine Inj) (08/13/16 12:45) Diphenhydramine Inj (Benadryl Inj) (08/13/16 12:45) Type And Screen (08/13/16 12:42) Labs Laboratory Tests Test 08/13/16 08/13/16 12:25 13:00 Urine Color YELLOW Urine Turbidity CLEAR Urine pH 6.0 Urine Specific [place] 1.019 Urine Protein NEG mg/dL Urine Glucose (UA) NEG mg/dL Urine Ketones NEG mg/dL Urine Occult Blood MOD Urine Nitrite NEG Urine Bilirubin NEG Urine Urobilinogen LESS THAN 2.0 MG/DL Urine Leukocyte Esterase NEG Urine RBC 2 /hpf Urine WBC 1 /hpf Urine Mucus FEW /lpf Microscopic Urinalysis Comment CULT NOT INDICATED White Blood Count 8.2 TH/MM3 Red Blood Count 3.93 MIL/MM3 Hemoglobin 12.6 GM/DL Hematocrit 36.7 % Mean Corpuscular Volume 93.4 FL Mean Corpuscular Hemoglobin 32.0 PG Mean Corpuscular Hemoglobin 34.2 % Concent Red Cell Distribution Width 13.2 % Platelet Count 317 TH/MM3 Mean Platelet Volume 9.1 FL Neutrophils (%) (Auto) 72.5 % Lymphocytes (%) (Auto) 21.2 % Monocytes (%) (Auto) 5.0 % Eosinophils (%) (Auto) 0.5 % Basophils (%) (Auto) 0.8 % Neutrophils # (Auto) 5.9 TH/MM3 Lymphocytes # (Auto) 1.7 TH/MM3 Monocytes # (Auto) 0.4 TH/MM3 Eosinophils # (Auto) 0.0 TH/MM3 Basophils # (Auto) 0.1 TH/MM3 CBC Comment DIFF FINAL Differential Comment Sodium Level 141 MEQ/L Potassium Level 4.0 MEQ/L Chloride Level 109 MEQ/L Carbon Dioxide Level 22.1 MEQ/L Anion Gap 10 MEQ/L Blood Urea Nitrogen 8 MG/DL Creatinine 0.71 MG/DL Estimat Glomerular Filtration 99 ML/MIN Rate Random Glucose 101 MG/DL Calcium Level 9.1 MG/DL Total Bilirubin 0.6 MG/DL Aspartate Amino Transf 24 U/L (AST/SGOT) Alanine Aminotransferase 34 U/L (ALT/SGPT) Alkaline Phosphatase 124 U/L Total Protein 7.1 GM/DL Albumin 3.6 GM/DL Blood Type O POSITIVE Antibody Screen NEGATIVE MDM Medical Decision Making Medical Screen Exam Complete: Yes Emergency Medical Condition: Yes Medical Record Reviewed: Yes Differential Diagnosis Migraine headache versus tension headache versus electrolyte abnormality versus preeclampsia versus post-epidural headache Narrative Course Patient is a 25-year-old female comes in complaining of a headache for the past 4 days. Exam shows no neurologic abnormalities. I believe it is unlikely this is related to the epidural as it started several days after she received epidural. Patient has normal blood pressure no other signs of preeclampsia, so this is much lower concern. IV established, labs sent. Labs show no acute abnormalities. Patient given IV fluids, Compazine, Benadryl, Toradol. Patient reports feeling much better after medications. Will be discharged with prescription for Fioricet. Patient advised to dump her breast milk when taking these medications and not to feed the baby. She understands and has been bottlefeeding the baby formula. She is comfortable with this plan at this time. Advised follow-up with her OB. Advised to return to the ED as needed for any worsening symptoms. Diagnosis Primary Impression: Headache Qualified Code: R51 - Acute nonintractable headache, unspecified headache type Patient Instructions: Acute Headache (ED), General Instructions Additional Instructions: Take Fioricet as needed for pain. Do not breast feed while taking this medication. Follow up with OB. Return to the ED as needed for any worsening symptoms. Scripts Gvlyvigrib-Ydxjynefgbsiy-Mcdrxwsp (Fioricet)50-300-40 Mg Cap1 Cap PO Q4H PRN ( HEADACHE) #12 CAP Ref 0 Prov:Leona Fuller MD 08/13/16 Disposition: 01 DISCHARGE HOME Condition: Stable Leona Fuller MD Aug 13, 2016 15:11
[2016-08-13 16:00] VITALS: BP 145/79; PULSE 72; RESP 18; O2SAT 98
[2016-10-03] MEDS ORDERED: PROM12.54 PO (11:04)
[2016-10-03] MEDS ORDERED: ZOFR4TAB PO (11:04)
[2016-10-27] MEDS ORDERED: EPIN1INJ24 IM (09:06)
[2016-10-27] MEDS ORDERED: VITA20004 PO (09:06)
[2016-10-31] MEDS ORDERED: EPIN1INJ17 IM (15:59)
[2016-11-10] MEDS ORDERED: NALT1TAB3 PO (08:37)
[2016-11-10] MEDS ORDERED: ANTA250T PO (08:37)
[2016-11-10] MEDS ORDERED: AZIT500T2 PO (08:42)
[2016-11-10] MEDS ORDERED: PROM12.54 PO (08:42)
[2016-11-10] MEDS ORDERED: LEVOTAB PO (08:42)
[2016-11-16] MEDS ORDERED: ALLE10TA PO (10:50)
[2016-11-17] MEDS ORDERED: PROM12.54 PO (11:03)
[2016-12-12] MEDS ORDERED: ONDA4TAB7 SL (09:50)
[2016-12-12] MEDS ORDERED: PROM12.54 PO (15:56)
== END 2016-08-13 16:22 | disposition home or self-care (01) ==
LOC: NEPA 12:09
DX: R51 Headache (principal); R42 Dizziness and giddiness
CPT/HCPCS: 80053; 81001; 85025; 86850; 86900; 86901; 96361; 96374; 96375; 99284; J0780; J1200; J1885; J7030